=== PATIENT | male | born 1990 | race Caucasian/White ===

== ENCOUNTER 2017-08-08 19:39 | Emergency (ER) | payer SELFPAY ==
--- NOTE | 2017-08-08 22:08 | ED Physician Documentation ---
PD HPI UPPER EXT INJURY - Stated complaint Stated Complaint: LT ARM NUMBNESS - Chief complaint Chief Complaint: Ext Problem - History obtained from History obtained from: Patient - History of Present Illness Location: Left, Wrist Where injury occurred: Home Timing - onset: How many days ago (4) Timing - details: Gradual onset, Still present Similar symptoms before: Has not had sx before Recently seen: Not recently seen - Additonal information Additional information: Patient is a 26 year old male with no significant past medical history who is presenting to the emergency department for difficulty moving his wrist. Patient states that he is having a hard time gripping with his left hand and flexing his left wrist. patient checked on-line and was worried he was having a stroke. Upon initial evaluation patient had no deficits. Review of Systems Constitutional: denies: Fever, Chills Eyes: denies: Decreased vision, Photophobia Ears: reports: Reviewed and negative Nose: reports: Reviewed and negative Throat: reports: Reviewed and negative Cardiac: reports: Reviewed and negative Respiratory: reports: Reviewed and negative GI: reports: Reviewed and negative : reports: Reviewed and negative Skin: reports: Rash Musculoskeletal: denies: Extremity pain, Joint pain Neurologic: reports: Focal weakness, Numbness. denies: Headache Immunocompromised: denies: Immunocompromised PD PAST MEDICAL HISTORY - Past Medical History Neuro: Headache/migraine - Past Surgical History Past Surgical History: Yes Ortho: Other - Present Medications Home Medications: Ambulatory Orders Medication Instructions Recorded Confirmed No Known Home Medications [No 08/08/17 08/08/17 Known Home Medications] - Allergies Allergies/Adverse Reactions: Allergies Allergy/AdvReac Type Severity Reaction Status Date / Time amoxicillin [Amoxicillin] Allergy Intermediate Rash Verified 08/08/17 19:48 Penicillins Allergy Intermediate Rash Verified 08/08/17 19:48 - Social History Does the pt smoke?: Yes Smoking Status: Current every day smoker Does the pt drink ETOH?: No Does the pt have substance abuse?: Yes - Immunizations Immunizations are current?: Yes - POLST Patient has POLST: No PD ED PE NORMAL - Vitals Vital signs reviewed: Yes - General General: Alert and oriented X 3 - HEENT HEENT: Atraumatic - Cardiac Cardiac: RRR - Respiratory Respiratory: No respiratory distress - Abdomen Abdomen: Non distended - Neuro Neuro: Alert and oriented X 3, No motor deficit, No sensory deficit PD ED PE EXPANDED - General General: Disheveled, poorly kept, Anxious - Derm Derm: Pick baldwin (bilateral upper extremities) - Extremities Extremities: Left wrist (full rom, 5/5 strength with general manager farm, flexion and extension ) - Neuro Neuro: Normal motor, Normal gait. No: Weakness, Abnormal sensation Results - Vitals Vitals: Vital Signs - 24 hr 08/08/17 08/08/17 19:45 22:12 Temperature 36.8 C Heart Rate 106 H 86 Respiratory 18 18 Rate Blood Pressure 138/90 H 132/77 H O2 Saturation 100 100 Oxygen O2 Source Room air PD MEDICAL DECISION MAKING - ED course Complexity details: reviewed old records, reviewed results, re-evaluated patient , considered differential, d/w patient ED course: Patient was seen and examined at bedside. patient had no neurological deficit and had full rom. patient required no imaging at this time and was stable for discharge with outpatient follow up. Departure - Departure Disposition: 01 Home, Self Care Clinical Impression: Peripheral neuropathy Condition: Good Instructions: ED Neuropathy Peripheral Follow-Up: primary,care provider [Other] - As Needed Comments: Your symptoms today are being caused by a peripheral neuropathy. It is likely secondary to a nerve compression. It is not a stroke and should get better in time. 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 If you don't improve in a week to 10 days you should follow up with your doctor. You may return to the emergency department at any time for new, worsening or uncontrollable symptoms. Discharge Date/Time: 08/08/17 22:13
[2017-08-08 22:13] VITALS: BP 132/77
== END 2017-08-08 22:13 | disposition home or self-care (01) ==
LOC: ED 19:39
DX: G62.9 Polyneuropathy, unspecified (principal); F17.200 Nicotine dependence, unspecified, uncomplicated; R46.89 Other symptoms and signs involving appearance and behavior
CPT/HCPCS: 99282; 99283

== ENCOUNTER 2018-05-18 11:57 | Emergency (ER) | payer OTHER, MEDICAID ==
[2018-05-18 12:15] VITALS: BP 129/63
--- NOTE | 2018-05-18 13:30 | XRAY Report ---
Reason: fever cough RLL ronchi Procedure Date: 05/18/2018 Accession Number: [id number] / [id number] Procedure: XR - Chest 2 View X-Ray CPT Code: 90320 FULL RESULT: EXAM: CHEST RADIOGRAPHY EXAM DATE: 05/18/2018 01:06 PM. CLINICAL HISTORY: Fever cough RLL rudy. COMPARISON: CHEST 1 VIEW 09/15/2015 11:13 AM. TECHNIQUE: 2 views. FINDINGS: Lungs/Pleura: No focal opacities evident. No pleural effusion. No pneumothorax. Normal volumes. Mediastinum: Heart and mediastinal contours are unremarkable. Other: None. IMPRESSION: Normal 2-view chest radiography. RADIA
--- NOTE | 2018-05-18 13:54 | ED Physician Documentation ---
History of Present Illness - Stated complaint Stated Complaint: FIT FOR CONF - Chief complaint Chief Complaint: General - Additonal information Additional information: pt to ED with police after DUI needing fit for halfway exam he is an illicit drug user (meth and heroin) but states only smokes no IVDA no injury or crash pt denies any pain he has been sich with fever cough congestion NV Review of Systems Constitutional: reports: Fever Nose: reports: Congestion Respiratory: reports: Cough GI: reports: Vomiting Endocrine: denies: Easy bruising / bleeding Immunocompromised: denies: Immunocompromised PD PAST MEDICAL HISTORY - Past Surgical History Past Surgical History: Yes Ortho: Other - Present Medications Home Medications: Ambulatory Orders Medication Instructions Recorded Confirmed Albuterol Sulfate [Proair Hfa 2 puffs INH Q4H PRN #1 inhaler 05/18/18 Inhaler] - Allergies Allergies/Adverse Reactions: Allergies Allergy/AdvReac Type Severity Reaction Status Date / Time amoxicillin [Amoxicillin] Allergy Intermediate Rash Verified 08/08/17 19:48 Penicillins Allergy Intermediate Rash Verified 08/08/17 19:48 - Social History Does the pt smoke?: Yes Smoking Status: Current every day smoker Does the pt drink ETOH?: No Does the pt have substance abuse?: Yes - Immunizations Immunizations are current?: Yes - POLST Patient has POLST: No PD ED PE NORMAL - Vitals Vital signs reviewed: Yes - General General: Alert and oriented X 3 - HEENT HEENT: Atraumatic, Moist mucous membranes, Pharynx benign - Neck Neck: Supple, no meningeal sign - Cardiac Cardiac: RRR - Respiratory Respiratory: Other (colt occ mild wheeze and RLL ronchi) - Abdomen Abdomen: Soft, Non tender - Derm Derm: Normal color - Neuro Neuro: Alert and oriented X 3 Results - Vitals Vitals: Vital Signs - 24 hr 05/18/18 12:12 Temperature 36.6 C Heart Rate 90 Respiratory 14 Rate Blood Pressure 129/63 O2 Saturation 98 Oxygen O2 Source Room air - Rads (name of study) CXR Radiology: See rad report (NA[facility]) PD MEDICAL DECISION MAKING - ED course ED course: fever per pt but not here - he states no IVDA only smokes - and in setting of URI sx - no murmur on exam Departure - Departure Disposition: Home, Self Care Clinical Impression: URI, acute Condition: Good Instructions: ED URI Viral W Wheezing Prescriptions: Albuterol Sulfate [Proair Hfa Inhaler] 2 puffs INH Q4H PRN #1 inhaler PRN Reason: Shortness Of Air/Wheezing Comments: I have examined Mr Carolina and feel he is safe for halfway. He was found to have an upper respiratory infection with wheezing so i recommend albuterol 2 puffs every 4-6 hr as needed for the cough. And he has a history or meth and heroin abuse so he may have withdrawal symptoms - the office with him in the ER advises me the halfway has a protocol for managing withdrawal sympotms.
== END 2018-05-18 14:04 | disposition home or self-care (01) ==
LOC: ED 11:57
DX: Z02.89 Encounter for other administrative examinations (principal); J06.9 Acute upper respiratory infection, unspecified; F17.200 Nicotine dependence, unspecified, uncomplicated; F15.10 Other stimulant abuse, uncomplicated; F11.10 Opioid abuse, uncomplicated
CPT/HCPCS: 36415; 71046; 99283

== ENCOUNTER 2019-12-17 17:48 | Emergency (ER) | payer MEDICAID, OTHER ==
--- NOTE | 2019-12-17 18:13 | ED Physician Documentation ---
PD HPI SKIN - Stated complaint Stated Complaint: R LEG BUG BITE - Chief complaint Chief Complaint: Wound - History obtained from History obtained from: Patient - History of Present Illness Timing - onset: How many days ago (few) Timing - duration: Days (few) Timing - details: Gradual onset, Still present Location: RLE (lateral lower leg redness that started as small spot then grew, opened and drained some but still with very tender swelling.) Quality / character: Painful, Discolored (red), Swelling, Draining Associated symptoms: No: Fever, N/V/D Contributing factors: Insect bite /sting (he thought maybe bug bite initially, then seemed more like staph.) Similar symptoms before: Diagnosis (prior skin abscesses) Review of Systems Constitutional: denies: Fever, Chills Nose: denies: Rhinorrhea / runny nose, Congestion Throat: denies: Sore throat Respiratory: denies: Cough GI: denies: Vomiting, Diarrhea Musculoskeletal: denies: Neck pain Neurologic: denies: Altered mental status, Headache PD PAST MEDICAL HISTORY - Past Medical History Cardiovascular: None - Past Surgical History Past Surgical History: Yes Ortho: Other - Present Medications Home Medications: Ambulatory Orders Medication Instructions Recorded Confirmed Albuterol Sulfate [Proair Hfa 2 puffs INH Q4H PRN #1 inhaler 05/18/18 Inhaler] Chlorhexidine Gluconate [Hibiclens] 15 ml TP DAILY #236 ml 12/17/19 Mupirocin 1 applic TP TID #15 g 12/17/19 Naproxen 375 mg PO TID #30 tablet 12/17/19 Sulfamethox/Trimeth 800/160 1 each PO BID #14 tablet 12/17/19 [Bactrim Ds 800/160] - Allergies Allergies/Adverse Reactions: Allergies Allergy/AdvReac Type Severity Reaction Status Date / Time amoxicillin [Amoxicillin] Allergy Intermediate Rash Verified 12/17/19 17:58 Penicillins Allergy Intermediate Rash Verified 12/17/19 17:58 - Social History Does the pt smoke?: Yes Smoking Status: Current every day smoker Does the pt drink ETOH?: No Does the pt have substance abuse?: Yes - Immunizations Immunizations are current?: Yes - POLST Patient has POLST: No PD ED PE NORMAL - Vitals Vital signs reviewed: Yes - General General: Alert and oriented X 3, No acute distress, Well developed/nourished - Derm Derm: Normal color, Warm and dry - Extremities Extremities: Other (right lateral upper part of lower leg with rounded area of swelling and marked tenderness. Red without fluctuance. Small hole in center without current drainage. U/S bedside showing minimal fluid just under the skin.) - Neuro Neuro: No motor deficit, No sensory deficit Results - Vitals Vitals: Vital Signs - 24 hr 12/17/19 12/17/19 17:55 18:57 Temperature 37.2 C 36.7 C Heart Rate 114 H 100 Respiratory 18 24 Rate Blood Pressure 136/80 H 124/84 H O2 Saturation 100 100 Oxygen O2 Source Room air PD MEDICAL DECISION MAKING - ED course Complexity details: considered differential (reports ecstasy use recently, accounting for fast heart rate. Does not seem septic. ), d/w patient Departure - Departure Disposition: 01 Home, Self Care Clinical Impression: Bacterial skin infection of leg Qualifiers: Laterality: right Qualified Code(s): L03.115 - Cellulitis of right lower limb Condition: Stable Record reviewed to determine appropriate education?: Yes Instructions: ED Staph Infec Abx Tx Only Prescriptions: Sulfamethox/Trimeth 800/160 [Bactrim Ds 800/160] 1 each PO BID #14 tablet Chlorhexidine Gluconate [Hibiclens] 15 ml TP DAILY #236 ml Mupirocin 1 applic TP TID #15 g Naproxen 375 mg PO TID #30 tablet Comments: Warm ice towels to the area to improve blood flow and help fight off the infection. This is most likely a staph infection of the skin. Bactrim antibiotic twice daily for a week. Topical mupirocin antibiotic to 3 times a day. Use chlorhexidine body wash antiseptic daily from head to toe to reduce the chance of other areas developing. Naproxen anti-inflammatory twice daily. Add Tylenol if needed for pains. I would anticipate improvement over the next several days and resolution in 5 to 6 days. Recheck if not improving in that timeframe or if worsening. Discharge Date/Time: 12/17/19 19:00
[2019-12-17] MEDS ORDERED: ACETAMINOPHEN 325 MG TABLET PO STA (18:27)
[2019-12-17] MEDS ORDERED: SULFAMETH/TRIMETH DS 800/160 MG TABLET PO STA (18:27)
[2019-12-17] MEDS ORDERED: MUPIROCIN 2% OINT 1 GM TOP STA (18:27)
[2019-12-17] MEDS ORDERED: IBUPROFEN 600 MG TABLET PO STA (18:27)
[2019-12-17 18:57] VITALS: BP 124/84
== END 2019-12-17 19:00 | disposition home or self-care (01) ==
LOC: ED 17:48
DX: L03.115 Cellulitis of right lower limb (principal); F17.200 Nicotine dependence, unspecified, uncomplicated
CPT/HCPCS: 99283; A9270

== ENCOUNTER 2020-08-23 20:21 | Outpatient (CLI) | payer MEDICAID | END 2020-08-23 20:22 | disposition EMS.NT | LOC: EMS 20:21 | DX: S51.811A Laceration without foreign body of right forearm, initial encounter (principal); W29.8XXA Contact with other powered hand tools and household machinery, initial encounter; Y93.89 Activity, other specified ==

== ENCOUNTER 2020-08-23 21:16 | Emergency (ER) | payer MEDICAID ==
[2020-08-23 21:22] VITALS: BP 150/100
[2020-08-23] MEDS ORDERED: TETANUS/DIPHTHERIA/PERTUSSIS 0.5 ML SYRINGE IM ONE (21:47)
--- NOTE | 2020-08-23 21:52 | ED Physician Documentation ---
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 He is not sure of his tetanus status. No other injuries. Review of Systems Constitutional: reports: Reviewed and negative Eyes: reports: Reviewed and negative Ears: reports: Reviewed and negative Nose: reports: Reviewed and negative Throat: reports: Reviewed and negative Cardiac: reports: Reviewed and negative Respiratory: reports: Reviewed and negative PD PAST MEDICAL HISTORY - Past Medical History Past Medical History: No Cardiovascular: None - Past Surgical History Past Surgical History: Yes Ortho: Other - Present Medications Home Medications: Ambulatory Orders Medication Instructions Recorded Confirmed Albuterol Sulfate [Proair Hfa 2 puffs INH Q4H PRN #1 inhaler 05/18/18 Inhaler] Chlorhexidine Gluconate [Hibiclens] 15 ml TP DAILY #236 ml 12/17/19 Mupirocin 1 applic TP TID #15 g 12/17/19 Naproxen 375 mg PO TID #30 tablet 12/17/19 Sulfamethox/Trimeth 800/160 1 each PO BID #14 tablet 12/17/19 [Bactrim Ds 800/160] - Allergies Allergies/Adverse Reactions: Allergies Allergy/AdvReac Type Severity Reaction Status Date / Time amoxicillin [Amoxicillin] Allergy Intermediate Rash Verified 08/23/20 21:19 Penicillins Allergy Intermediate Rash Verified 08/23/20 21:19 - Social History Does the pt smoke?: Yes Smoking Status: Current every day smoker Does the pt drink ETOH?: No Does the pt have substance abuse?: Yes - Immunizations Immunizations are current?: Yes - POLST Patient has POLST: No PD ED PE NORMAL - Vitals Vital signs reviewed: Yes - General General: Alert and oriented X 3, No acute distress - HEENT HEENT: PERRL, EOMI - Extremities Extremities: Other (He has about 4 linear parallel lacerations just proximal to the wrist flexor crease without distal neurovascular or tendinous compromise.) - Neuro Neuro: Alert and oriented X 3, Normal speech Results - Vitals Vitals: Vital Signs - 24 hr 08/23/20 21:19 Temperature 36.7 C Heart Rate 100 Respiratory 16 Rate Blood Pressure 150/100 H O2 Saturation 99 Oxygen O2 Source Room air Procedures - Laceration (location) R wrist Length in cm: 3 Wound type: Linear, Into subcut fat Neurovascular status: Sensory intact, Motor intact, Vascular intact Tendon involvement: Tendon intact Anesthesia: Lidocaine 2% with epi Wound preparation: Irrigated copiously NS Skin layer closure: Nylon, Interrupted, Size #-0 - enter number (4-0), Sutures - enter # (5) Other: Patient tolerated well, No complications, Neurovascular intact, Tetanus booster given Departure - Departure Disposition: 01 Home, Self Care Clinical Impression: Laceration Condition: Good Record reviewed to determine appropriate education?: Yes Instructions: ED Laceration All Comments: Come back for any signs of infection which would include: Redness, swelling, drainage, increased pain, or fevers. You can wash it soap and water. Keep it covered and moist with bacitracin ointment which is available over the counter; avoid neosporin. Follow-up with your physician in 14 days for suture removal.
== END 2020-08-23 22:01 | disposition home or self-care (01) ==
LOC: ED 21:16
DX: S61.511A Laceration without foreign body of right wrist, initial encounter (principal); W31.1XXA Contact with metalworking machines, initial encounter; F17.200 Nicotine dependence, unspecified, uncomplicated
CPT/HCPCS: 12002; 90471; 99282; 99283